=== PATIENT | male | born 1995 | race Caucasian/White ===

== ENCOUNTER 2018-05-22 09:05 | Emergency (ER) | payer SELFPAY ==
[2018-05-22] MEDS: LIDOCAINE/MYLANTA 40 ML BTL PO (09:56)
[2018-05-22] MEDS: BELLADONNA/PHENOBARBITAL TAB PO (09:56)
[2018-05-22] MEDS: ONDANSETRON (ODT) 4 MG TAB ODT (09:56)
== END 2018-05-22 10:05 | disposition home or self-care (01) ==
LOC: FTE 09:05
DX: R11.2 Nausea with vomiting, unspecified (principal); F17.210 Nicotine dependence, cigarettes, uncomplicated
CPT/HCPCS: 99283